=== PATIENT | female | born 1970 | race Caucasian/White ===

== ENCOUNTER 2024-03-09 08:46 | Outpatient (CLI) | payer OTHER, SELFPAY ==
--- NOTE | 2024-03-09 08:56 | MM_ITS ---
WS: [id number] BILATERAL SCREENING DIGITAL TOMOSYNTHESIS MAMMOGRAM WITH CAD HISTORY: SCREENING COMPARISON: None available. Bilateral CC and MLO views with tomosynthesis and synthetic mammography submitted. Computer aided det ection analyzed. Breast composition: There are scattered areas of fibroglandular density. No suspicious masses, microc alcifications or architectural distortion. MM/[place] [id number] IMPRESSION: BI-RADS: 1-Negative FOLLOW UP: 1 Year Follow-up
--- NOTE | 2024-03-09 08:56 | US_ITS ---
WS: [id number] ULTRASOUND THYROID TECHNIQUE: Ultrasound of the thyroid. CLINICAL INFORMATION: NONTOXIC GOITER COMPARISON: None. FINDINGS: Thyroid: Heterogeneous nodular thyroid echotexture bilaterally Numerous bilateral cystic and solid thyroid nodules can be seen with multinodular goiter. Recommend c orrelation with thyroid function studies. Largest nodule RIGHT superior thyroid measuring 1.8 x 1.1 x 2.0 cm appears well-circumscribed and hyp oechoic. Numerous incidental colloid cyst RIGHT thyroid. Largest nodule LEFT thyroid in the mid thyroid measuring 2.4 x 2.0 x 3.4 cm with a complex cystic jordan earance. A few tiny echogenic punctate foci in the solid portion. Right thyroid lobe: 5.2 cm x 1.9 cm x 1.6 cm Left thyroid lobe: 5.1 cm x 2.5 cm x 2.3 cm. Isthmus: 0.2 mm. Cervical lymphadenopathy: None. US/US thyroid [id number] IMPRESSION: 1. Hypoechoic well-circumscribed RIGHT superior thyroid nodule measuring 1.8 x 1.1 x 2.0 cm. Recommend ultrasound-guided FNA TIRADS Category 4: Moderately suspicious (total points = 4) FNA if e1.5 cm Follow if e1 cm (at 1, 2, 3, and 5 years) 2. Complex cystic and solid LEFT mid thyroid nodule measuring 2.4 x 2.0 x 3.4 cm . Recommend ultrasound-guided FNA of the complex LEFT thyroid nodule. TIRADS Category 4: Moderately suspicious (total points = 5) FNA if e1.5 cm Follow if e1 cm (at 1, 2, 3, and 5 years)
== END 2024-03-09 08:47 | disposition home or self-care (01) ==
LOC: RAD 08:50
PROVIDERS: PCP Nurse Practitioner Family; Visit Provider Nurse Practitioner Family
DX: Z12.31 Encounter for screening mammogram for malignant neoplasm of breast (principal); E04.9 Nontoxic goiter, unspecified; R92.323 Mammographic fibroglandular density, bilateral breasts
CPT/HCPCS: 76536; 77063; 77067

== ENCOUNTER 2024-04-27 10:00 | Oncology outpatient (recurring) (ONCR) | payer OTHER, SELFPAY ==
[2024-04-20 10:00] VITALS: BP 134/89; PULSE 51; RESP 16; TEMP 36.3; O2SAT 99
[2024-04-20] MEDS: ferric carboxy (IVPB) 750 MG in sodium chloride 0.9% (100 ml) 100 ML 345 MG IV (10:43)
[2024-04-20 11:10] VITALS: BP 135/79; PULSE 50; RESP 16; O2SAT 100
[2024-04-27 09:21] VITALS: BP 124/81; PULSE 63; RESP 18; TEMP 36.4; O2SAT 99
[2024-04-27] MEDS: ferric carboxy (IVPB) 750 MG in sodium chloride 0.9% (100 ml) 100 ML 345 MG IV (09:58)
[2024-04-27 10:35] VITALS: BP 113/74; PULSE 54; RESP 16; TEMP 36.2; O2SAT 99
== END 2024-05-08 23:59 | disposition home or self-care (01) ==
PROVIDERS: PCP Nurse Practitioner Family; Visit Provider Internal Medicine Medical Oncology
DX: D50.9 Iron deficiency anemia, unspecified (principal); Z53.9 Procedure and treatment not carried out, unspecified reason
CPT/HCPCS: 96365; J1439

== ENCOUNTER 2024-12-15 06:18 | Day surgery (SDC) | payer OTHER, SELFPAY ==
--- NOTE | 2024-12-15 05:43 | W.PM.OPSUD ---
Surgery/Procedure H&P Update DATE OF PROCEDURE: December 15, 2024 DATE H&P PERFORMED: 11/30/24 H&P UPDATE INFORMATION: I have reviewed H&P completed within last 30 days, I have examined patient prior to procedure, No changes to prior documentation and H&P is in [facility] [place] EMR on date indicated PLANNED PROCEDURE: Operation Date: 12/15/24 07:55 Proposed Procedures p Colonoscopy 13352, G0121, Z12.11(Not Applicable) - Keron Scott MD
[2024-12-15 06:38] VITALS: BMI 34.9
[2024-12-15 06:39] VITALS: BP 161/90; PULSE 91; RESP 18; TEMP 36.4; O2SAT 97
[2024-12-15] MEDS: sodium chloride 0.9% 500 ML 15 ML IV (06:50)
--- NOTE | 2024-12-15 07:20 | ANES.PREANE2 ---
Pre-Anesthetic Assessment Height/Weight: Height 1.85 m Weight 120.202 kg Temp Pulse Resp BP Pulse Ox O2 Del Method 97.5 F L 91 18 161/90 97 Room Air 12/15/24 06:39 12/15/24 06:39 12/15/24 06:39 12/15/24 06:39 12/15/24 06:39 12/15/24 06:39 Operation Date: 12/15/24 07:55 Proposed Procedures p Colonoscopy 80644, G0121, Z12.11(Not Applicable) - Keron Scott MD Familial anesthetic complications: Never had anesthesia Was Beta Darius taken within 24 hours: N/A Was Clonidine taken within 24 hours: N/A Last intake: Intake Last Liquid Date 12/14/24 Last Liquid Time 20:00 Last Solid Date 12/13/24 Last Solid Time 19:00 Social No alcohol and No tobacco Exam alert, oriented x 3, clear to auscultation bilaterally and regular rate & rhythm Airway Submandibular: within normal limits Cervical ROM: within normal limits Mallampati: Class II Dentition: full History/ROS No significant history except as noted and No significant complaints Pulmonary None reported CV/HEM Anemia and Hypertension None reported Hepatic None reported GI None reported Metabolic None reported Musc/skel Lower Back Pain Neuropsych None reported Anesthetic Plan ASA status: 2 Anesthesia: Anesthesia Evaluation, General and MAC Risk of > 500 ml blood loss (7ml/kg in children): No Medications/Allergies Home Medications ?Medication ?Instructions ?Recorded ?Confirmed ?Last Taken ?Type Lactobacillus acidophilus 20 100 mmu cells PO DAILY 11/30/24 12/13/24 12/14/24 History billion cell capsule (Florajen Acidophilus) lisinopril 20 mg tablet 20 mg PO DAILY 11/30/24 12/13/24 12/14/24 History Allergies Allergy/AdvReac Type Severity Reaction Status Date / Time No Known Allergies Allergy Unverified 11/30/24 08:22 Current Medications Generic Name Dose Route Start Last Admin Trade Name Freq PRN Reason Stop Dose Admin Sodium Chloride 500 mls @ 15 mls/hr 12/15/24 06:30 12/15/24 06:50 Sodium Chloride 0.9% IV 12/16/24 06:29 15 mls/hr .Q24H PRN Administration COLONOSCOPY FLUIDS PFSH Anesthesia Family History (Updated 11/30/24 @ 08:28 by BAY Hodgson) Mother Breast cancer Cancer lung Social History Smoking and tobacco/nicotine status: never used tobacco/nicotine Female Reproductive History Date of last menstrual period: 10/21/24 Data Anesthesia Cardiac Studies: No Data to Display
[2024-12-15 08:23] LABS: HCG, Serum Qual Negative (Negative)
[2024-12-15 09:30] VITALS: BP 115/63; PULSE 78; RESP 12; TEMP 36.2; O2SAT 100
[2024-12-15 09:40] VITALS: BP 120/80; PULSE 74; RESP 16; O2SAT 98
--- NOTE | 2024-12-15 09:55 | ANE.PACU2 ---
Inpatient post-anesthesia follow up: Airway intact: Yes Vital signs: Temperature 97.2 F Pulse Rate 74 Respiratory Rate 16 Blood Pressure 120/80 Pulse Oximetry 98 Oxygen Delivery Me thod Room Air Oxygen Flow Rate Fraction of Inspir ed Oxygen Hydration adequate: Yes Nausea and vomiting: No Pain level: 1 Mental status: Baseline
== END 2024-12-15 09:55 | disposition home or self-care (01) ==
PROVIDERS: Anesthesiology; PCP Nurse Practitioner Family; Visit Provider Surgery
PROC: 0DJD8ZZ Inspection of Lower Intestinal Tract, Via Natural or Artificial Opening Endoscopic (ICD-10-PCS; CPT 45378; principal; 2024-12-15 07:55)
DX: Z12.11 Encounter for screening for malignant neoplasm of colon (principal); I10 Essential (primary) hypertension; Z79.899 Other long term (current) drug therapy
CPT/HCPCS: 45378; 84703; J2704; J7040

== ENCOUNTER 2025-05-11 10:20 | Outpatient (CLI) | payer OTHER, SELFPAY ==
--- NOTE | 2025-05-11 10:20 | MM_ITS ---
WS: [id number] BILATERAL 3D TOMOSYNTHESIS DIGITAL SCREENING MAMMOGRAPHY WITH CAD CLINICAL INFORMATION: SCREENING HISTORY: Screening mammogram. No current complaints. COMPARISON: 2023 TECHNIQUE: Bilateral CC and MLO views. FINDINGS: Scattered fibroglandular densities bilaterally. No suspicious focal mass, asymmetry, calcifications, or architectural distortion. No evidence of malignancy. MM/MM scr BI tomosynthesis [id number] IMPRESSION: DENSITY: There are scattered areas of fibroglandular density. BI-RADS: 1 - Negative. FOLLOW UP: 1 Year Follow-up Recommend return to annual screening mammography.
== END 2025-05-11 10:21 | disposition home or self-care (01) ==
PROVIDERS: PCP Nurse Practitioner Family; Visit Provider Nurse Practitioner Family
DX: Z12.31 Encounter for screening mammogram for malignant neoplasm of breast (principal)
CPT/HCPCS: 77063; 77067